=== PATIENT | male | born 1990 | race Caucasian/White ===

== ENCOUNTER 2018-03-25 19:04 | Emergency (ER) | payer MEDICAID, OTHER ==
[~2018-03-25] VITALS: Ht 182.9 cm; Wt 70.0 kg
[~2018-03-25 19:04] MED LIST: ACET500C5 PO; AMOX500C2 PO; HYDR-762 PO; IBUP-1542 PO; ONDA4TAB35 PO
[2018-03-25 19:10] VITALS: Ht 182.9 cm; Wt 70.0 kg
[2018-03-25] MEDS ORDERED: DIPHENHYDRAMINE 50 MG INJ IV STA (19:34)
[2018-03-25] MEDS ORDERED: KETOROLAC 30 MG INJ IV STA (19:34)
[2018-03-25] MEDS ORDERED: PROCHLORPERAZINE 10 MG INJ IV STA ×2 (19:34→19:45)
[2018-03-25] MEDS ORDERED: SOD CHLORIDE 0.9% 1,000 ML IV STA (19:34)
[2018-03-25] MEDS ORDERED: EXCED PO (20:58)
[2018-03-25] MEDS ORDERED: ONDA4TAB14 PO (20:58)
--- NOTE | 2018-03-25 21:00 | ERD ---
ER Documentation Chief Complaint Chief Complaint vomiting since noon, AMADOR HPI This is a 28-year-old male with history of migraines complaining of migraine headache that began today with nausea and vomiting. It is gradual in onset. No fever. He does have photosensitivity. No trauma. ROS All systems reviewed and are negative except as per history of present illness. Medications Home Meds Active Scripts Ondansetron (Ondansetron Odt) 4 Mg Tab.rapdis, 4 MG PO Q6H PRN for NAUSEA AND/OR VOMITING, #20 TAB Prov:ELIZABET TRAN PA-C 03/25/18 Acetaminophen/Aspirin/Caffeine* (Excedrin*) 1 Tab Tab, 1 TAB PO Q6, #30 TAB Prov:ELIZABET TRAN PA-C 03/25/18 Ibuprofen* (Motrin*) 600 Mg Tab, 600 MG PO Q6H PRN for PAIN AND OR ELEVATED TEMP, #30 TAB Prov:BHUPINDER SHAW MD 04/05/15 Amoxicillin* (Amoxicillin*) 500 Mg Cap, 500 MG PO TID for 10 Days, CAP Prov:SANTOSH DONATO MD 03/15/15 Hydrocodone Bit-Acetaminophen* ([place]*) 10-325 Mg Tablet, 1 TAB PO Q6 PRN for PAIN, #14 TAB Prov:SANTOSH DONATO MD 03/15/15 Ondansetron Hcl* (Zofran* ODT) 4 mg -ODT Tab.disper, 4 MG PO Q6 PRN for NAUSEA AND/OR VOMITING, #20 TAB Prov:SUHAS MORENO NP 08/10/14 Acetaminophen* (Tylophen*) 500 Mg Capsule, 1 CAP PO Q6H PRN for PAIN AND OR ELEVATED TEMP, #30 CAP Prov:SUHAS MORENO NP 08/10/14 Allergies Allergies: Coded Allergies: No Known Allergy (Verified Allergy, Unknown, 10/14/08) PMhx/Soc History of Surgery: No Anesthesia Reaction: No Hx Neurological Disorder: Yes (MIGRANE) Hx Respiratory Disorders: No Hx Cardiac Disorders: No Hx Psychiatric Problems: No Hx Miscellaneous Medical Probl: Yes (RIGHT THUMB FRACTURE) Hx Alcohol Use: Yes (casually) Hx Substance Use: Yes (weeds everyday) Hx Tobacco Use: No Smoking Status: Current every day smoker FmHx Family History: No diabetes Physical Exam Vitals Vital Signs Date Temp Pulse Resp B/P (MAP) Pulse Ox O2 O2 Flow FiO2 Time Delivery Rate 03/25/18 99.8 127 24 105/70 100 19:10 (82) Physical Exam INITIAL VITAL SIGNS: Reviewed by me GENERAL: Awake, alert and oriented x 4, well appearing, nontoxic, speaking in full sentences. No acute distress HEAD: Atraumatic NECK: Supple. No masses. Full range of motion. No meningismus. No midline tenderness. EYES: EOMI. PERRL. THROAT: No tonilar erythema or edema. No exudates. Uvula midline. No kissing tonsils. RESPIRATORY: Clear to auscultation bilaterally. Symmetric chest wall rise. No wheezing or rales. No accessory muscle use. CV: Regular rate and rhythm. No murmurs, rubs, or gallops. NEUROLOGIC: Normal mental status and speech. Face is symmetric. Moves all extremities equally. Motor and sensory distally intact. Normal coordination. Ambulates with a strong steady gait. Result Diagram: 03/25/18194303/25/181943 Results 24 hrs Laboratory Tests Test 03/25/18 19:44 White Blood Count 13.9 10^3/ul Red Blood Count 5.09 10^6/ul Hemoglobin 15.5 g/dl Hematocrit 44.3 % Mean Corpuscular Volume 87.0 fl Mean Corpuscular Hemoglobin 30.5 pg Mean Corpuscular Hemoglobin Concent 35.0 g/dl Red Cell Distribution Width 12.2 % Platelet Count 291 10^3/UL Mean Platelet Volume 10.1 fl Immature Granulocytes % 0.600 % Neutrophils % 87.8 % Lymphocytes % 7.0 % Monocytes % 4.3 % Eosinophils % 0.0 % Basophils % 0.3 % Nucleated Red Blood Cells % 0.0 /100WBC Immature Granulocytes # 0.090 10^3/ul Neutrophils # 12.2 10^3/ul Lymphocytes # 1.0 10^3/ul Monocytes # 0.6 10^3/ul Eosinophils # 0.0 10^3/ul Basophils # 0.0 10^3/ul Nucleated Red Blood Cells # 0.0 10^3/ul Sodium Level 139 mmol/L Potassium Level 3.4 mmol/L Chloride Level 99 mmol/L Carbon Dioxide Level 24 mmol/L Anion Gap 16 Blood Urea Nitrogen 13 mg/dl Creatinine 0.80 mg/dl Est Glomerular Filtrat Rate mL/min > 60 mL/min Glucose Level 105 mg/dl Calcium Level 10.2 mg/dl Total Bilirubin 0.4 mg/dl Direct Bilirubin 0.00 mg/dl Indirect Bilirubin 0.4 mg/dl Aspartate Amino Transf (AST/SGOT) 31 IU/L Alanine Aminotransferase (ALT/SGPT) 20 IU/L Alkaline Phosphatase 88 IU/L Total Protein 7.9 g/dl Albumin 5.0 g/dl Globulin 2.90 g/dl Albumin/Globulin Ratio 1.72 Current Medications Medications Dose Sig/Duy Start Time Status Last (Trade) Ordered Route PRN Stop Time Admin Dose Reason Admin Sodium 1,000 ml @ Q1H STAT 03/25/18 DC 03/25/18 Chloride 1,000 mls/hr IV 19:34 19:49 03/25/18 20:33 10 mg ONCE STAT 03/25/18 DC 03/25/18 Prochlorperaz IV 19:34 19:52 ine 03/25/18 19:36 (Compazine Inj) Ketorolac 15 mg ONCE STAT 03/25/18 DC 03/25/18 Tromethamine IV 19:34 19:49 (Toradol) 03/25/18 19:36 25 mg ONCE STAT 03/25/18 DC 03/25/18 Diphenhydrami IV 19:34 19:49 ne HCl 03/25/18 19:36 (Benadryl) 10 mg ONCE STAT 03/25/18 DC Prochlorperaz IV 19:45 ine 03/25/18 19:46 (Compazine Inj) Procedures/MDM The differential diagnosis includes but is not limited to subdural hematoma, epidural hematoma, intracerebral hemorrhage, occult trauma, CVA, meningitis, encephalitis, hypertension, tension, migraine, cluster, cervical spine disease, and others. Labs are nonacute. Patient felt much better after IV fluids, Compazine, Benadryl, and Toradol. He is discharged with [place] patient counseled regarding my diagnostic impression and care plan. Prior to discharge all questions answered. Pt agrees with treatment plan and understands strict return precautions. Pt is instructed to follow up with primary care chung english within 24-48 hours. Precautionary instructions provided including instructions to return to the ER if not improving or for any worsening or changing symptoms or concerns. Departure Diagnosis: Primary Impression: Migraine Condition: Stable Patient Instructions: Migraine Headache: Stages and Treatment Additional Instructions: Call your primary care doctor TOMORROW for an appointment during the next 1-2 days.See the doctor sooner or return here if your condition worsens before your appointment time. ELIZABET TRAN PA-C Mar 25, 2018 21:00
[2018-03-25 21:10] VITALS: BP 102/59; PULSE 95; RESP 18
== END 2018-03-25 21:13 | disposition home or self-care (01) ==
LOC: FTE 19:04
DX: G43.909 Migraine, unspecified, not intractable, without status migrainosus (principal); R40.2142 Coma scale, eyes open, spontaneous, at arrival to emergency department; R40.2362 Coma scale, best motor response, obeys commands, at arrival to emergency department; R40.2252 Coma scale, best verbal response, oriented, at arrival to emergency department; F17.210 Nicotine dependence, cigarettes, uncomplicated
CPT/HCPCS: 36415; 80053; 85025; 96374; 96375; J1200; J1885; J7030; Z7502